=== PATIENT | female | born 1965 | race Caucasian/White ===

== ENCOUNTER 2019-07-14 21:07 | Emergency (ER) | payer OTHER ==
[~2019-07-14] VITALS: Ht 172.7 cm; Wt 84.1 kg
[2019-07-14] MEDS ORDERED: PredniSONE 20 MG TABLET PO ONE (22:00)
[2019-07-14] MEDS ORDERED: ALBUTEROL SULFATE 5 MG/ML 20 ML NEB SOLN [BULK] NEB ONE (22:00)
[2019-07-14] MEDS ORDERED: 0.9% SODIUM CHLORIDE 5 ML NEB SOLUTION NEB ONE (22:24)
[2019-07-14] MEDS ORDERED: AMOXICILLIN TRIHYDRATE 250 MG CAPSULE PO ONE (23:15)
[2019-07-14] MEDS ORDERED: IBUPROFEN 600 MG TABLET PO ONE (23:30)
[2019-07-15 00:11] VITALS: BP 111/66
== END 2019-07-15 00:13 | disposition home or self-care (01) ==
LOC: EMS 21:12
DX: J18.9 Pneumonia, unspecified organism (principal)
CPT/HCPCS: 71046; 94640; 99284; J7512